=== PATIENT | male | born 1965 | race Caucasian/White ===

== ENCOUNTER 2018-10-06 06:44 | Day surgery (SDC) | payer OTHER ==
[~2018-10-06 06:44] MED LIST: CEFAZOLIN 2 GM/D5W RTU 2 GM/50 ML RTUPB IV ONE; CEFAZOLIN 2 GM/D5W RTU 2 GM/50 ML RTUPB IV PRN
[2018-10-06 07:54] LABS: ABSOLUTE EOSINOPHILS # (AUTO) 0.1 10^3/uL (0.0-0.6); ABSOLUTE MONOCYTES (AUTO) 0.5 10^3/uL (0.1-1.4); ABSOLUTE NEUT (AUTO) 2.2 10^3/uL (1.7-8.2); BASOPHILS % (AUTO) 0.8 % (0-2); EOSINOPHILS % (AUTO) 2.3 % (0-6); HEMATOCRIT 43.9 % (37.9-51.0); HEMOGLOBIN 15.1 g/dL (13.5-17.0); LYMPHOCYTES % (AUTO) 25.6 % (13-45); MEAN CORPUSCULAR HEMOGLOBIN 30.3 pg (27.0-33.4); MEAN CORPUSCULAR HGB CONC 34.4 g/dL (32.0-36.0); MEAN CORPUSCULAR VOLUME 88 fl (80-97); MONOCYTES % (AUTO) 12.6 % (3-13); PLATELET COUNT 221 10^3/uL (150-450); RED BLOOD COUNT 4.98 10^6/uL (4.35-5.55); RED CELL DISTRIBUTION WIDTH 12.7 % (11.5-14.0); SEGMENTED NEUTROPHILS % (AUTO) 58.7 % (42-78); TOTAL CELLS COUNTED % (AUTO) 100 %; WHITE BLOOD COUNT 3.8 10^3/uL (4.0-10.5)
[2018-10-06 08:02] LABS: ANION GAP 7 (5-19); BLOOD UREA NITROGEN 19 mg/dL (7-20); CALCIUM 9.3 mg/dL (8.4-10.2); CARBON DIOXIDE 27 mmol/L (22-30); CHLORIDE 105 mmol/L (98-107); GLUCOSE 97 mg/dL (75-110); POTASSIUM 4.4 mmol/L (3.6-5.0); SODIUM 139.3 mmol/L (137-145)
[2018-10-06] MEDS ORDERED: LIDOCAINE 1% INJ-PF (10 MG/ML) 30 ML SDV ONE (08:09)
[2018-10-06] MEDS ORDERED: BUPIVACAINE HCL 0.5 % INJ/PF 30 ML SDV ONE (08:09)
[2018-10-06] MEDS ORDERED: FENTANYL CITRATE INJ/PF 100 MCG/2 ML AMPUL ONE (09:10)
[2018-10-06] MEDS ORDERED: MIDAZOLAM 2 MG/2 ML INJ ONE (09:11)
[2018-10-06] MEDS ORDERED: ACETAMINOPHEN 1,000 MG/100 ML RTUPB IV ONE (09:12)
[2018-10-06] MEDS ORDERED: PROPOFOL INJ 200 MG/20 ML VIAL IV ONE (09:12)
[2018-10-06] MEDS ORDERED: FENTANYL CITRATE INJ/PF 100 MCG/2 ML AMPUL IV PRN ×3 (09:44)
[2018-10-06] MEDS ORDERED: DIPHENHYDRAMINE HCL 50 MG/ML VIAL IV PRN (09:44)
[2018-10-06] MEDS ORDERED: PROMETHAZINE HCL INJ 25 MG/1 ML VIAL IV PRN (09:44)
[2018-10-06 11:57] VITALS: BP 107/77
--- NOTE | 2018-10-06 13:42 | OPERATIVE REPORT E ---
Operative Report NAME: RADHA CHOUDHURY : 1965 AGE: 53Y DATE OF SURGERY: ROOM: PREOPERATIVE DIAGNOSES: 1. Right trigger thumb. 2. Right long trigger finger. 3. Right ring trigger finger. POSTOPERATIVE DIAGNOSES: 1. Right trigger thumb. 2. Right long trigger finger. 3. Right ring trigger finger. PROCEDURE: 1. Right trigger thumb release with tenosynovectomy. 2. Right long trigger finger release with tenosynovectomy. 3. Right ring trigger finger release with tenosynovectomy. SURGEON: KOBI ECKERT M.D. ANESTHESIA: General. BLOOD LOSS Minimal. COMPLICATIONS: None. INDICATIONS: The patient is a 53-year-old man with active triggering of his right thumb, long and ring fingers. He has failed nonoperative treatment including cortisone injection. DESCRIPTION OF PROCEDURE: Following the induction of a general anesthetic and administration of antibiotics, the patient was positioned supine on the operating room table. All bony prominences were padded. A tourniquet was placed proximally on the right arm, but not inflated. The right upper extremity was sterilely prepped with Chloraprep and draped in the standard fashion. The arm was exsanguinated and the tourniquet inflated to 250 mmHg. We first turned our attention to the trigger thumb. A transverse incision was made at the metacarpophalangeal flexion crease. Sharp incision was performed through skin. Blunt dissection was performed through the subcutaneous tissue with care taken to identify and protect superficial branching nerves and arteries. The A1 magdalena was identified. It was transected and partially removed. The tendon was removed from the wound and tenosynovectomy was performed. There was no passive catching. The wound was irrigated and the skin was reapproximated with 3-0 nylon suture. We next turned our attention to the long trigger finger. Transverse incision was made at the distal palmar crease. A sharp incision was performed through skin with blunt dissection through the subcutaneous tissue. Fascial flaps were raised. The A1 magdalena was transected and partially removed. Both flexor tendons were removed from the wound and tenosynovectomy was performed. There was no longer any catching of the tendon. The wound was irrigated and the skin reapproximated with 3-0 nylon suture. Lastly, we turned our attention to the ring trigger finger. A transverse incision was made at the distal palmar crease. A sharp incision was performed through skin with blunt dissection through the subcutaneous tissue. Fascial flaps were raised. The A1 magdalena was transected under direct visualization and partially removed. Both tendons were removed from the wound and tenosynovectomy performed. Again, there was no longer any catching of the tendon. This wound was irrigated. The skin reapproximated with nylon suture. Marcaine 0.25% was injected into all wounds for postoperative analgesia and a bulky sterile dressing was applied. The patient tolerated the procedure well without complications and was brought to the recovery room in stable condition. DICTATING PHYSICIAN: KOBI ECKERT M.D. [id number] PHY#: [id number] ID: [id number] JOB#: [id number] ACCT: [id number] cc:KOBI ECKERT M.D. >
--- NOTE | 2018-10-06 14:03 | EKG REPORT ---
SEVERITY:- NORMAL ECG - SINUS RHYTHM : Confirmed by: Seven Crawford 06-Oct-2018 14:02:00
== END 2018-10-06 12:00 | disposition home or self-care (01) ==
LOC: OROUT 06:44
PROVIDERS: ATTEND Orthopaedic Surgery
DX: M65.311 Trigger thumb, right thumb (principal); M65.331 Trigger finger, right middle finger; M65.341 Trigger finger, right ring finger; M18.0 Bilateral primary osteoarthritis of first carpometacarpal joints; M65.342 Trigger finger, left ring finger
CPT/HCPCS: 36415; 85025; 80048; 93005; 93010; 26055 ×3; J2250; J3490; J3010; J2704; J0690; J0131; 1810